=== PATIENT | female | born 1995 | race Caucasian/White ===

== ENCOUNTER 2017-02-20 00:45 | Emergency (ER) | payer BC ==
[~2017-02-20] VITALS: Ht 162.6 cm; Wt 68.0 kg
[~2017-02-20 00:45] MED LIST: ACET500C5 PO; D-ME118S6 PO; DEPAKOTE; NASO17 NASAL; OXCA300T3; SODI44SP11 NS
[2017-02-20 00:49] VITALS: Ht 162.6 cm; Wt 68.0 kg
[2017-02-20] MEDS ORDERED: SOD CHLORIDE 0.9% 1,000 ML IV STA (03:59)
[2017-02-20] MEDS ORDERED: ONDANSETRON 4 MG INJ IV STA (04:03)
[2017-02-20] MEDS ORDERED: morphine 4 MG/ML VIAL IV STA (04:03)
[2017-02-20 04:35] LABS: ABNORMAL IP MESSAGE 1; BASOPHILS % 0.2 % (0.0-2.0); EOSINOPHILS % 0.2 % (0.0-7.0); HEMATOCRIT 38.2 % (37.0-47.0); HEMOGLOBIN 13.1 g/dl (12.0-16.0); LYMPHOCYTES # 0.5 10^3/ul (0.8-2.9); LYMPHOCYTES % 4.1 % (15.0-51.0); MEAN CORPUSCULAR HEMOGLOBIN 29.9 pg (29.0-33.0); MEAN CORPUSCULAR HGB CONC 34.3 g/dl (32.0-37.0); MEAN CORPUSCULAR VOLUME 87.2 fl (82.0-101.0); MEAN PLATELET VOLUME 10.4 fl (7.4-10.4); MONOCYTE # 0.5 10^3/ul (0.3-0.9); MONOCYTES % 3.8 % (0.0-11.0); NEUTROPHILS % 91.3 % (39.0-77.0); PLATELET COUNT 362 10^3/UL (140-415); RED BLOOD COUNT 4.38 10^6/ul (4.20-5.40); WHITE BLOOD COUNT 13.1 10^3/ul (4.8-10.8)
[2017-02-20 04:39] LABS: POSITIVE DIFF @See below
[2017-02-20 04:43] LABS: ADD UMIC YES; UR ASCORBIC ACID NEGATIVE (NEGATIVE); UR BILIRUBIN (Dip) NEGATIVE (NEGATIVE); UR BLOOD (Dip) 3+ mg/dL (NEGATIVE); UR CLARITY SLIGHTLY CLOUDY (CLEAR); UR COLOR YELLOW (YELLOW); UR GLUCOSE (Dip) NEGATIVE (NEGATIVE); UR KETONES (Dip) 1+ mg/dL (NEGATIVE); UR LEUKOCYTE ESTERASE (Dip) NEGATIVE Leu/ul (NEGATIVE); UR MUCUS MODERATE /HPF (NONE SEEN); UR NITRITE (Dip) NEGATIVE (NEGATIVE); UR RBC 8 /HPF (0-5); UR SPECIFIC GRAVITY (Dip) 1.026 (1.003-1.030); UR SQUAMOUS EPITHELIAL CELL FEW /HPF (FEW); UR TOTAL PROTEIN (Dip) 1+ mg/dl (NEGATIVE); UR UROBILINOGEN (Dip) NEGATIVE (NEGATIVE)
[2017-02-20 05:08] LABS: CALCIUM 9.8 mg/dl (8.4-10.2); CREATININE 0.6 mg/dl (0.44-1.00); POTASSIUM 3.6 mmol/L (3.5-5.1)
--- NOTE | 2017-02-20 05:22 | ERD ---
ER Documentation Chief Complaint Chief Complaint VOMITING, DIARRHEA STARTED 2 HRS AGO HPI This is a 21-year-old female had vomiting diarrhea started 2 hours prior to arrival to the ER. History of excessive vomiting which nonbilious nonbloody. 3 episodes of diarrhea which are nonbloody. No fevers no chills. No other current complaints. ROS All systems reviewed and are negative except as per history of present illness. Medications Home Meds Active Scripts Sodium Chloride (Saline Nasal [place]) 45 Ml [place], 45 ML NS Q6 for 5 Days, SPRAY Prov:KATHY TOLENTINO C 11/15/14 Mometasone Furoate* (Nasonex*) 50 Mcg/[place] - 17 Gm [place].pump, 1 SPRAY NASAL BID for 5 Days, EA Prov:KATHY TOLENTINO C 11/15/14 Dextromethorphan Hb-Promethazine Hcl (Promethazine DM Syrup) 180 Ml Syrup, 5 ML PO Q6 Y for COUGH for 5 Days, ML Prov:KATHY TOLENTINO C 11/15/14 Acetaminophen* (Tylophen*) 500 Mg Capsule, 2 CAP PO Q8H Y for PAIN AND OR ELEVATED TEMP, #20 CAP Prov:RANDAKATHY SMITH C 11/15/14 Reported Medications [Depakote] TAB No Conflict Check 10/13/09 Oxcarbazepine* (Trileptal*) 300 Mg Tablet 10/13/09 Allergies Allergies: Coded Allergies: No Known Allergy (Verified , 03/05/12) PMhx/Soc Medical and Surgical Hx: pt denies Medical Hx, pt denies Surgical Hx History of Surgery: No Anesthesia Reaction: No Hx Neurological Disorder: No Hx Respiratory Disorders: No Hx Cardiac Disorders: No Hx Psychiatric Problems: No Hx Miscellaneous Medical Probl: Yes (seizures 7 years ago) Hx Alcohol Use: No Hx Substance Use: No Hx Tobacco Use: No Smoking Status: Never smoker Physical Exam Vitals Vital Signs Date Time Temp Pulse Resp B/P Pulse Ox O2 Delivery O2 Flow Rate FiO2 02/20/17 04:26 99.1 124 16 132/86 99 Room Air 02/20/17 00:49 101.0 124 20 138/72 98 Physical Exam Const: [] Head: Atraumatic Eyes: Normal Conjunctiva ENT: Normal External Ears, Nose and Mouth. Neck: Full range of motion..~ No meningismus. Resp: Clear to auscultation bilaterally Cardio: Regular rate and rhythm, no murmurs Abd: Soft, non tender, non distended. Normal bowel sounds Skin: No petechiae or rashes Back: No midline or flank tenderness Ext: No cyanosis, or edema Neur: Awake and alert Psych: Normal Mood and Affect Result Diagram: 02/20/1741902/20/17 042 Results 24 hrs Laboratory Tests Test 02/20/17 04:20 White Blood Count 13.110^3/ul Red Blood Count 4.3810^6/ul Hemoglobin 13.1g/dl Hematocrit 38.2% Mean Corpuscular Volume 87.2fl Mean Corpuscular Hemoglobin 29.9pg Mean Corpuscular Hemoglobin Concent 34.3g/dl Red Cell Distribution Width 13.0% Platelet Count 63109^3/UL Mean Platelet Volume 10.4fl Neutrophils % 91.3% Lymphocytes % 4.1% Monocytes % 3.8% Eosinophils % 0.2% Basophils % 0.2% Nucleated Red Blood Cells % 0.0/100WBC Neutrophils # 12.010^3/ul Lymphocytes # 0.510^3/ul Monocytes # 0.510^3/ul Eosinophils # 0.010^3/ul Basophils # 0.010^3/ul Nucleated Red Blood Cells # 0.010^3/ul Urine Color YELLOW Urine Clarity SLIGHTLY CLOUDY Urine pH 5.0 Urine Specific [place] 1.026 Urine Ketones 1+mg/dL Urine Nitrite NEGATIVEmg/dL Urine Bilirubin NEGATIVEmg/dL Urine Urobilinogen NEGATIVEmg/dL Urine Leukocyte Esterase NEGATIVELeu/ul Urine Microscopic RBC 8/HPF Urine Microscopic WBC 1/HPF Urine Squamous Epithelial Cells FEW/HPF Urine Mucus MODERATE/HPF Urine Hemoglobin 3+mg/dL Urine Glucose NEGATIVEmg/dL Urine Total Protein 1+mg/dl Sodium Level 144mmol/L Potassium Level 3.6mmol/L Chloride Level 106mmol/L Carbon Dioxide Level 23mmol/L Anion Gap 19 Blood Urea Nitrogen 9mg/dl Creatinine 0.60mg/dl Glucose Level 131mg/dl Calcium Level 9.8mg/dl Current Medications Medications (Trade) Dose Ordered Sig/Esau Route PRN Reason Start Time Stop Time Status Last Admin Dose Admin Sodium Chloride (NS) 1,000 ml @ 1,000 mls/hr Q1H STAT IV 02/20/17 03:59 02/20/17 04:58 DC 02/20/17 04:34 Morphine Sulfate (morphine) 4 mg ONCE STAT IV 02/20/17 04:03 02/20/17 04:11 DC Ondansetron HCl (Zofran Inj) 4 mg ONCE STAT IV 02/20/17 04:03 02/20/17 04:11 DC Procedures/MDM Medical decision-makin-year-old female with episodes of gastroenteritis. At this point clinically stable. Patient be discharged home with Zofran and Bentyl. Follow-up in 8 hours for serial abdominal exams. Increase p.o. fluid intake. Departure Diagnosis: Primary Impression: Vomiting and diarrhea Condition: Stable CYNDI KIRK Feb 20, 2017 05:22
[2017-02-20] MEDS ORDERED: ONDA4TAB14 PO (05:23)
[2017-02-20] MEDS ORDERED: DICY10CA60 PO (05:23)
[2017-02-20 05:33] VITALS: BP 134/25; PULSE 124; RESP 16; TEMP 98.8
--- NOTE | 2017-02-20 05:42 | RADRPT ---
PROCEDURE: Abdominal ultrasound, limited. CLINICAL INDICATION: Abdominal pain. TECHNIQUE: Multiple real-time images were acquired of the patient's right upper abdomen utilizing a high resolution transducer. COMPARISON: None FINDINGS: The liver demonstrates normal echogenicity and size measuring 12.9 cm. There is no focal mass or in trahepatic biliary ductal dilatation. The portal vein is patent. The gallbladder is not distended. No gallstones are identified. There is no pericholecystic fluid or gallbladder wall thickening. The common bile duct measures 3.6 mm in maximal dimension. The pancreas is obscured by overlying [place] gas. No free fluid is identified. The right kidney is normal size and echogenicity measuring 12.2 cm. There is no focal renal mass or echogenic calculus identified. There is no obstructive uropathy. IMPRESSION: Pancreas obscured by overlying bowel gas. Otherwise unremarkable right upper abdominal ultrasound. .Bjorn Briceno MD, Date Time Electronically viewed and signed by .Bjorn Briceno MD, MD on 02/20/2017 05:41 .T/
== END 2017-02-20 05:33 | disposition home or self-care (01) ==
LOC: FTE 00:45 → E/R 05:33
DX: R11.10 Vomiting, unspecified (principal); R19.7 Diarrhea, unspecified
CPT/HCPCS: 36415; 76705; 80048; 81001; 85025; 99285; J7030

== ENCOUNTER 2018-06-04 07:34 | Emergency (ER) | payer BC ==
[~2018-06-04] VITALS: Wt 78.0 kg
[~2018-06-04 07:34] MED LIST changes: +DICY10CA40 PO; +ONDA4TAB14 PO
[2018-06-04] MEDS ORDERED: ONDANSETRON (ODT) 4 MG TAB ODT STA (07:52)
[2018-06-04] MEDS ORDERED: PANTOPRAZOLE (EC) 40 MG TAB PO ONE (08:00)
[2018-06-04] MEDS ORDERED: LIDOCAINE/MYLANTA 40 ML BTL PO ONE (08:00)
[2018-06-04] MEDS ORDERED: ONDA4TAB14 PO (08:00)
[2018-06-04 08:34] VITALS: BP 117/70; PULSE 83; RESP 15
--- NOTE | 2018-06-04 12:18 | ERD ---
ER Documentation Chief Complaint Chief Complaint ap since last night HPI Patient is a 22-year-old female with no medical problems who presents with abdominal pain. The patient has left upper quadrant abdominal pain which started yesterday. The patient said that she heard a "crack" while working. The patient tried ibuprofen last night. She has no fevers. She does have vomiting. She has an appointment today scheduled with her primary doctor at 6 PM. Upon review of old medical records the patient has multiple visits with various complaints since 2007. ROS All systems reviewed and are negative except as per history of present illness. Medications Home Meds Active Scripts Ondansetron (Ondansetron Odt) 4 Mg Tab.rapdis, 4 MG PO Q6H PRN for NAUSEA AND/OR VOMITING, #10 TAB Prov:JOYCE SULLIVAN MD 06/04/18 Ondansetron (Ondansetron Odt) 4 Mg Tab.rapdis, 4 MG PO Q6H PRN for NAUSEA AND/OR VOMITING, #10 TAB Prov:CYNDI KIRK 02/20/17 Dicyclomine HCl (Dicyclomine HCl) 10 Mg Capsule, 10 MG PO QID, #10 CAP Prov:CYNDI KIRK. 02/20/17 Sodium Chloride (Saline Nasal [place]) 45 Ml [place], 45 ML NS Q6 for 5 Days, SPRAY Prov:KATHY TOLENTINO 11/15/14 Mometasone Furoate* (Nasonex*) 50 Mcg/[place] - 17 Gm [place].pump, 1 SPRAY NASAL BID for 5 Days, EA Prov:KATHY TOLENTINO 11/15/14 Dextromethorphan Hb-Promethazine Hcl (Promethazine DM Syrup) 180 Ml Syrup, 5 ML PO Q6 PRN for COUGH for 5 Days, ML Prov:KATHY TOLENTINO 11/15/14 Acetaminophen* (Tylophen*) 500 Mg Capsule, 2 CAP PO Q8H PRN for PAIN AND OR ELEVATED TEMP, #20 CAP Prov:KATHY TOLENTINO 11/15/14 Reported Medications [Depakote] TAB No Conflict Check 10/13/09 Oxcarbazepine* (Trileptal*) 300 Mg Tablet 10/13/09 Allergies Allergies: Coded Allergies: No Known Allergy (Verified , 03/05/12) PMhx/Soc Medical and Surgical Hx: pt denies Surgical Hx History of Surgery: No Anesthesia Reaction: No Hx Neurological Disorder: No Hx Respiratory Disorders: No Hx Cardiac Disorders: No Hx Psychiatric Problems: No Hx Miscellaneous Medical Probl: Yes (seizures 7 years ago) Hx Alcohol Use: No Hx Substance Use: No Hx Tobacco Use: No Smoking Status: Never smoker FmHx Family History: diabetes Physical Exam Vitals Vital Signs Date Temp Pulse Resp B/P (MAP) Pulse Ox O2 O2 Flow FiO2 Time Delivery Rate 06/04/18 83 15 117/70 100 Room Air 08:34 (86) 06/04/18 102 14 122/75 99 Room Air 07:50 (91) 06/04/18 98.5 99 18 130/74 99 07:40 (92) Physical Exam Const: No acute distress Head: Atraumatic Eyes: Normal Conjunctiva ENT: Normal External Ears, Nose and Mouth. Neck: Full range of motion. No meningismus. Resp: Clear to auscultation bilaterally Cardio: Regular rate and rhythm, no murmurs Abd: Soft, left upper quadrant tenderness to palpation without rebound or gua rding Skin: No petechiae or rashes Back: No midline or flank tenderness Ext: No cyanosis, or edema Neur: Awake and alert Psych: Normal Mood and Affect Results 24 hrs Laboratory Tests Test 06/04/18 08:08 Urine Test NEGATIVE Current Medications Medications Dose Sig/Esau Start Time Status Last (Trade) Ordered Route PRN Stop Time Admin Dose Reason Admin 40 ml ONCE ONCE 06/04/18 DC 06/04/18 Miscellaneous PO 08:00 07:59 Medication 06/04/18 08:01 (Gi Cocktail (2)) 40 mg ONCE ONCE 06/04/18 DC 06/04/18 Pantoprazole PO 08:00 07:59 (Protonix 06/04/18 08:01 Tab) Ondansetron 4 mg ONCE STAT 06/04/18 DC 06/04/18 HCl (Zofran ODT 07:52 07:59 Odt) 06/04/18 07:54 Procedures/MDM Patient is a 22-year-old female who presents with abdominal pain. test is negative. I believe the patient likely has gastritis and the patient was given a GI cocktail and Protonix and feels better. She will be discharged. I do not believe she requires further workup or admission to the hospital at this time. The patient can return for any worsening symptoms. I doubt appendicitis, cholecystitis, pancreatitis, or bowel obstruction. Departure Diagnosis: Primary Impression: Vomiting Vomiting type: unspecified Vomiting Intractability: non-intractable Nausea presence: with nausea Qualified Codes: R11.2 - Nausea with vomiting, unspecified Additional Impression: Abdominal pain Abdominal location: left upper quadrant Qualified Codes: R10.12 - Left upper quadrant pain Condition: Fair Referrals: Dr. Thompson Additional Instructions: Keep your appointment scheduled today at 6PM with Dr. Thompson. JOYCE SULLIVAN MD Jun 04, 2018 12:18
== END 2018-06-04 08:34 | disposition home or self-care (01) ==
LOC: E/R 07:34
DX: R11.2 Nausea with vomiting, unspecified (principal)
CPT/HCPCS: 84703; 99283; Z7610